=== PATIENT | male | born 1970 | race Caucasian/White ===

== ENCOUNTER 2018-09-04 00:43 | Emergency (ER) | payer OTHER ==
[2018-09-04 02:40] VITALS: BP 107/69; PULSE 77; TEMP 97.9; BMI 37.1
[2018-09-04] MEDS ORDERED: ACETAMINOPHEN 500 MG TABLET (FP) PO ONE (03:39)
[2018-09-04] MEDS ORDERED: LIDOCAINE 5% TOPICAL PATCH TP ONE (03:39)
[2018-09-04] MEDS ORDERED: KETOROLAC TROMETHAMINE 60 MG/2 ML VIAL IM ONE (03:39)
--- NOTE | 2018-09-04 03:40 | PDOC ---
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 No weakness, numbness, atraumatic. - Physicial Exam PE: 09/04/18 06:14 Agree with exam as documented by resident - Medical Decision Making 09/04/18 06:15 Hx, Pe consistent with sciatica, imaging not indicated analgesia re-eval, likely dc
[2018-09-04] MEDS ORDERED: ACETAMINOPHEN 325 MG TABLET (FP) ONE (04:18)
[2018-09-04] MEDS ORDERED: KETOROLAC TROMETHAMINE 60 MG/2 ML VIAL ONE (04:18)
[2018-09-04] MEDS ORDERED: LIDOCAINE 5% TOPICAL PATCH ONE (04:18)
--- NOTE | 2018-09-04 04:30 | PDOC ---
History of Present Illness - General Chief Complaint: Pain, Acute Stated Complaint: SWELLING,LT LEG Time Seen by Provider: 09/04/18 03:24 History Source: Patient Exam Limitations: No Limitations - History of Present Illness Initial Comments: 09/04/18 04:25 Patient is a 47M with no significant medical history here today with L leg pain. 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 Endorses bilateral leg swelling. Denies fevers, chills, nausea, vomiting. Denies history of blood clots. Patient states that he went to [facility] but left due to the wait. No focal deficits, no ivda, no drug use, no saddle anesthesia, no incontinence/ retention. Past History - Past Medical History Allergies/Adverse Reactions: Allergies Allergy/AdvReac Type Severity Reaction Status Date / Time No Known Allergies Allergy Verified 09/04/18 02:18 Home Medications: Ambulatory Orders Lidocaine 5% Patch [Lidoderm -] 1 patch TP DAILY #30 patch 09/04/18 - Suicide/Smoking/Psychosocial Hx Smoking History: Never smoked Have you smoked in the past 12 months: No Information on smoking cessation initiated: No Hx Alcohol Use: No Drug/Substance Use Hx: No Review of Systems - Review of Systems Comments:: 09/04/18 04:26 GENERAL/CONSTITUTIONAL: No fever or chills. No weakness. HEAD, EYES, EARS, NOSE AND THROAT: No change in vision. No ear pain or discharge. No sore throat. CARDIOVASCULAR: No chest pain or shortness of breath RESPIRATORY: No cough, wheezing, or hemoptysis. GASTROINTESTINAL: No nausea, vomiting, diarrhea or constipation. GENITOURINARY: No dysuria, frequency, or change in urination. MUSCULOSKELETAL: +l leg and back pain SKIN: No rash NEUROLOGIC: No headache, vertigo, loss of consciousness, or change in strength/ sensation. HEMATOLOGIC/LYMPHATIC: No anemia, easy bleeding, or history of blood clots. *Physical Exam - Vital Signs Last Vital Signs Temp Pulse Resp BP Pulse Ox 97.9 F 77 18 107/69 98 09/04/18 00:43 09/04/18 00:43 09/04/18 00:43 09/04/18 00:43 09/04/18 00:43 - Physical Exam Comments: 09/04/18 04:27 GENERAL: Awake, alert, and fully oriented, in no acute distress HEAD: No signs of trauma, normocephalic, atraumatic EYES: PERRLA, EOMI, sclera anicteric, conjunctiva clear ENT: Auricles normal inspection, hearing grossly normal, nares patent, oropharynx clear without exudates. Moist mucosa NECK: Normal ROM, supple, no lymphadenopathy, JVD, or masses LUNGS: No distress, speaks full sentences, clear to auscultation bilaterally HEART: Regular rate and rhythm, normal S1 and S2, no murmurs, rubs or gallops, peripheral pulses normal and equal bilaterally. ABDOMEN: Soft, nontender, normoactive bowel sounds. No guarding, no rebound. No masses EXTREMITIES: Normal inspection, Normal range of motion, no edema. No clubbing or cyanosis. Extremities measured and equal in girth NEUROLOGICAL: Cranial nerves II through XII grossly intact. Normal speech, normal gait, no focal sensorimotor deficits SKIN: Warm, Dry, normal turgor, no rashes or lesions noted. BACK: No midline tenderness. Moderate Sedation - Procedure Monitoring Vital Signs: Procedure Monitoring Vital Signs Temperature 97.9 F 09/04/18 00:43 Pulse Rate 77 09/04/18 00:43 Respiratory Rate 18 09/04/18 00:43 Blood Pressure 107/69 09/04/18 00:43 O2 Sat by Pulse Oximetry (%) 98 09/04/18 00:43 Medical Decision Making - Medical Decision Making 09/04/18 04:27 Patient is 47M here today with back pain consistent with sciatica. Possibility of dvt entertained, dismissed due to equal leg size and better explanation with sciatica. Given return precautions. Given lidocaine and toradol for pain. Will discharge home. *DC/Admit/Observation/Transfer Diagnosis at time of Disposition: Back pain - Discharge Dispostion Disposition: HOME Condition at time of disposition: Good Decision to Admit order: No - Prescriptions Prescriptions: Lidocaine 5% Patch [Lidoderm -] 1 patch TP DAILY #30 patch - Referrals - Patient Instructions Printed Discharge Instructions: DI for Back Pain With Sciatica Additional Instructions: Please follow up with your primary care doctor this week. Please return if you have any new, worsening or concerning symptoms, especially increasing pain, fever. - Post Discharge Activity Forms/Work/School Notes: Back to Work
[2018-09-04] MEDS ORDERED: LIDOCAINE PATCH REMOVAL MC SCH (22:00)
== END 2018-09-04 04:51 | disposition home or self-care (01) ==
LOC: JER 00:43
PROC: 3E0233Z Introduction of Anti-inflammatory into Muscle, Percutaneous Approach (ICD-10-PCS; principal; 2018-09-04)
DX: M54.42 Lumbago with sciatica, left side (principal)
CPT/HCPCS: 99281-25